=== PATIENT | male | born 1970 | race Caucasian/White ===

== ENCOUNTER 2016-10-26 10:00 | Emergency (ER) | payer OTHER ==
[~2016-10-26] VITALS: Ht 167.6 cm; Wt 70.4 kg
[2016-10-26 10:24] VITALS: Ht 167.6 cm; Wt 70.4 kg
[2016-10-26] MEDS ORDERED: KETOROLAC 30 MG INJ IM STA (10:53)
--- NOTE | 2016-10-26 11:04 | ERD ---
ER Documentation Chief Complaint Date/Time DATE: 10/26/16 TIME: 11:02 Chief Complaint Pt with R hip pain after falling 10 feet on wood floor, Able to stand. HPI Patient is a 46-year-old male who presents to the ED with right hip right leg and right knee pain after sustaining a fall today. 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 He states that he broke his fall with his hand and has pain to his right hand. He does not have pain above his right hand. He denies hitting his head, passing out or losing consciousness he denies headache or dizziness. Denies abdominal pain, nausea, vomiting or diarrhea. He states that the pain is just located on the right side of his leg. He states that he is unable to put pressure on his right leg. He has no numbness or tingling. He is not taking any medication for symptoms. He has no other complaints. ROS All systems reviewed and are negative except as per history of present illness. Medications Home Meds Active Scripts Cyclobenzaprine Hcl* (Cyclobenzaprine Hcl*) 10 Mg Tablet, 10 MG PO TID, #15 TAB Prov:PILY SCHWARTZ PA-C 10/26/16 Naproxen* (Naprosyn*) 500 Mg Tablet, 500 MG PO BID Y for PAIN AND/OR INFLAMMATION, #30 TAB Prov:PILY SCHWARTZ PA-C 10/26/16 Allergies Allergies: Coded Allergies: No Known Allergy (Unverified , 10/26/16) PMhx/Soc Medical and Surgical Hx: pt denies Medical Hx, pt denies Surgical Hx History of Surgery: No Anesthesia Reaction: No Hx Neurological Disorder: No Hx Respiratory Disorders: No Hx Cardiac Disorders: No Hx Psychiatric Problems: No Hx Miscellaneous Medical Probl: No Hx Alcohol Use: Yes (SOCIALLY) Hx Substance Use: No Hx Tobacco Use: No Smoking Status: Never smoker FmHx Family History: No coronary disease, No diabetes, No other Physical Exam Vitals Vital Signs Date Time Temp Pulse Resp B/P Pulse Ox O2 Delivery O2 Flow Rate FiO2 10/26/16 10:24 98.0 75 20 118/73 98 Physical Exam GENERAL: Well-developed, well-nourished male. Appears in no acute distress. LUNG: Clear to auscultation bilaterally. No rhonchi, wheezing, rales or coarse breath sounds. HEART: Regular rate and rhythm. No murmurs, rubs or gallops. ABDOMEN: No scars, ecchymosis or rashes noted. Soft, nontender, and nondistended. Positive bowel sounds in all four quadrants. No rebound tenderness , no guarding. (-) McBurneys point tenderness. No CVA tenderness. BACK: No midline tenderness. No spinal or paraspinal tenderness. Extremities: Equal pulses bilaterally. No peripheral clubbing, cyanosis or edema. No unilateral leg swelling. Tenderness to the right knee, right femur and right hip. No step-offs or deformities. No erythema or swelling or ecchymosis. No open wounds or lacerations. Pain to the knee and hip with flexion extension of right leg. Tenderness to the right palm lateral side. No pain in the wrist or fingers. Radius, ulnar and median nerve intact. Flexion and extension intact. Sensation intact. No open wounds or lacerations. No step-offs or deformities. No erythema or swelling. NEUROLOGIC: Alert and oriented. Moving all four extremities. 5/5 strength in all extremities. Normal speech. UNSteady gait. SKIN: Normal color. Warm and dry. No rashes or lesions. Capillary refill < 2 seconds Results 24 hrs Current Medications Medications (Trade) Dose Ordered Sig/Josef Route PRN Reason Start Time Stop Time Status Last Admin Dose Admin Ketorolac Tromethamine (Toradol) 30 mg ONCE STAT IM 10/26/16 10:53 10/26/16 10:54 DC 10/26/16 12:45 Procedures/MDM ER COURSE: I kept the patient and/or family informed of laboratory and diagnostic imaging results throughout the emergency room course. IMAGING STUDIES [place] [address] Radiology Main Line: [phone] DIAGNOSTIC IMAGING REPORT Patient: RUBY CANO : 1970 Age: 46 Sex: M MR #: [id number] DOS: 10/26/16 1053 Ordering MD: PILY SCHWARTZ PAEleonora Location: [facility] Room/Bed: PROCEDURE: XR Right Femur. CLINICAL INDICATION: Right femur pain after fall. TECHNIQUE: 2 views of the right femur were obtained. COMPARISON: Right hip series and right knee series performed concurrently FINDINGS: There is normal mineralization and alignment of the right femur. There is no evidence of acute fracture dislocation. The adjacent joints are not included on the study and are included on concurrent hip and knee series.. The soft tissues are unremarkable. IMPRESSION: 1. No evidence of fracture or dislocation.. RPTAT: KK .Hema Martinez MD, MD Date Time Electronically viewed and signed by .Hema Martinez MD, MD on 2016 12:38 .B/ CC: PILY SCHWARTZ PA-C [place] [address] Radiology Main Line: [phone] DIAGNOSTIC IMAGING REPORT Patient: RUBY CANO : 1970 Age: 46 Sex: M MR #: [id number] DOS: 10/26/16 1053 Ordering MD: PILY SCHWARTZ PA-C Location: [facility] Room/Bed: PROCEDURE: XR Hand. CLINICAL INDICATION: Pain TECHNIQUE: Three views of the right hand were obtained. COMPARISON: No prior studies are available for comparison. FINDINGS: The bones of the hand appear intact, with no evidence of fracture, dislocation, or subluxation. The joint spaces are preserved. Bone mineralization is normal. No significant soft tissue swelling is seen. IMPRESSION: 1. Unremarkable right hand x-ray series. 2. No acute fracture or dislocation is seen. RPTAT: JJ .Ozzy Pichardo MD, Date Time Electronically viewed and signed by .Ozzy Pichardo MD, MD on 10/26/2016 12:24 .L/ CC: PILY SCHWARTZ PA-C [place] [address] Radiology Main Line: [phone] DIAGNOSTIC IMAGING REPORT Patient: RUBY CANO : 1970 Age: 46 Sex: M MR #: [id number] DOS: 10/26/16 1053 Ordering MD: PILY SCHWARTZ PA-C Location: [facility] Room/Bed: PROCEDURE: XR Right Hip. CLINICAL INDICATION: Right hip pain after fall TECHNIQUE: 2 views of the right hip were performed. COMPARISON: None. FINDINGS: There is normal mineralization and alignment. No fracture or osseous lesion is identified. Joint spaces are well maintained. There is no evidence of osteophyte erosion. The soft tissues are unremarkable. IMPRESSION: 1. Unremarkable right hip x-rays series. RPTAT: KK .Hema Martinez MD, MD Date Time Electronically viewed and signed by .Hema Martinez MD, MD on 2016 12:38 .B/ CC: PILY SCHWARTZ PA-C [place] [address] Radiology Main Line: [phone] DIAGNOSTIC IMAGING REPORT Patient: RUBY CANO : 1970 Age: 46 Sex: M MR #: [id number] DOS: 10/26/16 1053 Ordering MD: PILY SCHWARTZ PA-C Location: [facility] Room/Bed: PROCEDURE: Right knee series. CLINICAL INDICATION: Right knee pain after fall TECHNIQUE: Three views of the right knee are available for review. COMPARISON: None available FINDINGS: There is normal mineralization and alignment of the bones of the right knee. No acute fracture or dislocation is identified. There is mild medial joint space narrowing. There is mild spurring of the lateral tibial spine. There is no joint effusion. Overlying soft tissues are unremarkable. IMPRESSION: 1. No evidence of acute fracture or dislocation. 2. Mild degenerative changes of the right knee. RPTAT: KK .Hema Martinez MD, MD Date Time Electronically viewed and signed by .Hema Martinez MD, MD on 2016 12:39 .B/ CC: PILY SCHWARTZ PA-C PROCEDURES Nader wrap, crutches, Velcro splint. Neurovascularly intact post splint and Nader wrap application MEDICATIONS Toradol. Tolerated well with no adverse reaction. MEDICAL DECISION MAKING: This is a 46-year-old male who presents with right hip pain and right leg pain after sustaining a fall today vital signs were reviewed. Patient is afebrile. Patient is not hypoxic. Patient is nontoxic or ill-appearing. His x-rays of by radiologist unremarkable for fracture or dislocation. Patient's injuries are likely related to muscle strain versus sprain. Low suspicion for dislocation, fracture, septic joint, compartment syndrome, osteomyelitis, cellulitis, avascular necrosis, neurological injury, vascular injury, tendon laceration. I reexamined patient after administration of Toradol. Patient stated mild improvement in symptoms. DISCHARGE: At this time, patient is stable for discharge and outpatient management with no new complaints during the ER course. Patient was sent home with Naprimayn and Flexeril and a copy of imaging reports.. Patient will be discharged home with instructions to recheck for new or worsening symptoms such as fever, nausea, weakness, LOC and to follow up with primary care in the next 1-2 days. Patient was advised to return to the ER for any new or worsening symptoms. Plan was discussed and patient and/or family understands and agrees. Home instructions were given. Departure Diagnosis: Primary Impression: Fall Encounter type: initial encounter Qualified Code: W19.XXXA - Fall, initial encounter Condition: Stable PILY SCHWARTZ PA-C October 26, 2016 11:04
--- NOTE | 2016-10-26 12:25 | RADRPT ---
PROCEDURE: XR Hand. CLINICAL INDICATION: Pain TECHNIQUE: Three views of the right hand were obtained. COMPARISON: No prior studies are available for comparison. FINDINGS: The bones of the hand appear intact, with no evidence of fracture, dislocation, or subluxation. The joint spaces are preserved. Bone mineralization is normal. No significant soft tissue swelling is se en. IMPRESSION: 1. Unremarkable right hand x-ray series. 2. No acute fracture or dislocation is seen. RPTAT: JJ .Ozzy Pichardo MD, Date Time Electronically viewed and signed by .Ozzy Pichardo MD, on 10/26/2016 12:24 .L/
--- NOTE | 2016-10-26 12:38 | RADRPT ---
PROCEDURE: XR Right Femur. CLINICAL INDICATION: Right femur pain after fall. TECHNIQUE: 2 views of the right femur were obtained. COMPARISON: Right hip series and right knee series performed concurrently FINDINGS: There is normal mineralization and alignment of the right femur. There is no evidence of acute fract ure dislocation. The adjacent joints are not included on the study and are included on concurrent hi p and knee series.. The soft tissues are unremarkable. IMPRESSION: 1. No evidence of fracture or dislocation.. RPTAT: KK .Hema Martinez MD, MD Date Time Electronically viewed and signed by .Hema Martinez MD, MD on 10/26/2016 12:38 .B/
--- NOTE | 2016-10-26 12:39 | RADRPT ---
PROCEDURE: XR Right Hip. CLINICAL INDICATION: Right hip pain after fall TECHNIQUE: 2 views of the right hip were performed. COMPARISON: None. FINDINGS: There is normal mineralization and alignment. No fracture or osseous lesion is identified. Joint spa viri are well maintained. There is no evidence of osteophyte erosion. The soft tissues are unremarka ble. IMPRESSION: 1. Unremarkable right hip x-rays series. RPTAT: KK .Hema Martinez MD, MD Date Time Electronically viewed and signed by .Hema Martinez MD, on 10/26/2016 12:38 .B/
--- NOTE | 2016-10-26 12:39 | RADRPT ---
PROCEDURE: Right knee series. CLINICAL INDICATION: Right knee pain after fall TECHNIQUE: Three views of the right knee are available for review. COMPARISON: None available FINDINGS: There is normal mineralization and alignment of the bones of the right knee. No acute fracture or d islocation is identified. There is mild medial joint space narrowing. There is mild spurring of th e lateral tibial spine. There is no joint effusion. Overlying soft tissues are unremarkable. IMPRESSION: 1. No evidence of acute fracture or dislocation. 2. Mild degenerative changes of the right knee. RPTAT: KK .Hema Martinez MD, MD Date Time Electronically viewed and signed by .Hema Martinez MD, MD on 10/26/2016 12:39 .B/
[2016-10-26] MEDS ORDERED: NAPR-260 PO (12:48)
[2016-10-26] MEDS ORDERED: CYCL-319 PO (12:49)
[2016-10-26 13:46] VITALS: BP 132/87; PULSE 78; RESP 18; TEMP 97.8
== END 2016-10-26 13:47 | disposition home or self-care (01) ==
LOC: FTE 10:00
DX: M79.604 Pain in right leg (principal); M25.561 Pain in right knee; M79.641 Pain in right hand; Z04.3 Encounter for examination and observation following other accident
CPT/HCPCS: 29125; 73130; 73510; 73550; 73562; 96372; 99284; J1885